=== PATIENT | female | born 1955 | race Caucasian/White ===

== ENCOUNTER 2018-02-16 14:37 | Inpatient (IN) ==
[2018-02-16] MEDS ORDERED: SODIUM CHLORIDE 0.9% 1,000 ML IV STA (15:16)
[2018-02-16] MEDS ORDERED: PIPERACILLIN/TAZOBACTAM 3,375 MG in SODIUM CHLORIDE 0.9% 100 ML IV STA (15:16)
[2018-02-16] MEDS ORDERED: ONDANSETRON 4 MG/2 ML VIAL IV STA (15:16)
[2018-02-16] MEDS ORDERED: ONDANSETRON 4 MG/2 ML VIAL ONE (15:40)
[2018-02-16] MEDS ORDERED: PIPERACILLIN/TAZOBACTAM 3,375 MG VIAL IV ONE (15:40)
[2018-02-16] MEDS ORDERED: HYDROmorphone 2 MG/1 ML VIAL ONE (16:01)
[2018-02-16] MEDS ORDERED: LACTATED RINGERS 1,000 ML IV ONE (16:50)
[2018-02-16] MEDS ORDERED: HYDROmorphone 2 MG/1 ML VIAL IV ONE (17:00)
[2018-02-16 17:08] LABS: Basophils % 0.2 % (0.0-0.8); Hematocrit 32.2 VOL% (35.7-47.0); Hemoglobin 10.2 GM/DL (12.0-16.0); Immature Granulocytes % 0.3 %; Immature Granulocytes Absolute 0.05 #; Lymphocytes # 0.5 10*3/uL (1.4-4.0); Lymphocytes % 3.1 % (21.3-54.2); Mean Corpuscular HGB Conc 31.7 GM/DL (32-36); Mean Corpuscular Hemoglobin 24 PG (27-34); Mean Corpuscular Volume 76.1 FL (87-102); Mean Platelet Volume 10.9 FL (9.6-12.0); Monocytes # 0.5 10*3/uL (0.11-0.8); Monocytes % 3.1 % (1.7-12.7); Neutrophils # 15.8 10*3/uL (1.4-7.4); Neutrophils % 93.3 % (38.7-73.9); Platelet Count 437 T/CUMM (130-400); Red Blood Count 4.23 MC/CUMM (3.8-5.5); Red Cell Distribution Width 15.8 % (9.3-17.3); White Blood Count 16.9 T/CUMM (4-12)
[2018-02-16 17:39] LABS: Albumin 2.6 G/DL (3.4-5.0); Bilirubin,Total 0.4 MG/DL (0.2-1.0); Calcium 8.4 MG/DL (8.5-10.1); Osmolality,Calculated 277.8 MOS/KG (273-304); Potassium 4.1 MMOL/L (3.5-5.1)
[2018-02-16] MEDS ORDERED: ACETAMINOPHEN 325 MG TABLET PO PRN (17:43)
[2018-02-16 18:04] LABS: Lactic Acid 1.5 MMOL/L (0.4-2.0)
[2018-02-16] MEDS: LACTATED RINGERS 1,000 ML IV SCH (18:37)
[2018-02-16] MEDS: metroNIDAZOLE INJ 500 MG in PREMIX 1 EACH IV SCH (18:37)
[2018-02-16 18:52] LABS: INR 1.1; Partial Thromboplastin Time 34.3 SECS (0-40)
[2018-02-16] MEDS: PIPERACILLIN/TAZOBACTAM 3,375 MG in SODIUM CHLORIDE 0.9% 100 ML IV SCH (19:52)
[2018-02-16 20:47] LABS: Band Neutrophils 23 % (0-10); Lymphocytes 7 % (20-55); Platelet Estimate Increased; Segmented Neutrophils 69 % (50-85); Total Cells Counted 100
[2018-02-17] MEDS: metroNIDAZOLE INJ 500 MG in PREMIX 1 EACH IV SCH ×3 (01:50→18:12)
[2018-02-17] MEDS: LACTATED RINGERS 1,000 ML IV SCH ×5 (03:15→23:55)
[2018-02-17] MEDS: PIPERACILLIN/TAZOBACTAM 3,375 MG in SODIUM CHLORIDE 0.9% 100 ML IV SCH ×3 (03:15→19:26)
[2018-02-17] MEDS: ONDANSETRON 4 MG/2 ML VIAL IV PRN (03:55)
[2018-02-17] MEDS: HYDROmorphone 2 MG/1 ML VIAL IV PRN (03:55)
[2018-02-17 05:55] LABS: Basophils # 0.1 10*3/uL (0.0-0.2); Basophils % 0.4 % (0.0-0.8); Eosinophils % 0.2 % (0.00-10.9); Hematocrit 28.8 VOL% (35.7-47.0); Hemoglobin 9.1 GM/DL (12.0-16.0); Immature Granulocytes % 0.2 %; Immature Granulocytes Absolute 0.02 #; Lymphocytes # 0.4 10*3/uL (1.4-4.0); Lymphocytes % 3.1 % (21.3-54.2); Mean Corpuscular HGB Conc 31.6 GM/DL (32-36); Mean Corpuscular Hemoglobin 24 PG (27-34); Mean Corpuscular Volume 76.2 FL (87-102); Mean Platelet Volume 11.4 FL (9.6-12.0); Monocytes # 0.4 10*3/uL (0.11-0.8); Monocytes % 3.4 % (1.7-12.7); Neutrophils # 11.3 10*3/uL (1.4-7.4); Neutrophils % 92.7 % (38.7-73.9); Platelet Count 364 T/CUMM (130-400); Red Blood Count 3.78 MC/CUMM (3.8-5.5); Red Cell Distribution Width 15.7 % (9.3-17.3); White Blood Count 12.2 T/CUMM (4-12)
[2018-02-17 06:16] LABS: Calcium 8.2 MG/DL (8.5-10.1); Osmolality,Calculated 277.7 MOS/KG (273-304); Potassium 4.1 MMOL/L (3.5-5.1)
[2018-02-17] MEDS ORDERED: LACTATED RINGERS 1,000 ML IV ONE (06:28)
[2018-02-17 06:44] LABS: Band Neutrophils 16 % (0-10); Lymphocytes 8 % (20-55); Segmented Neutrophils 69 % (50-85); Total Cells Counted 100
[2018-02-17 06:45] LABS: Microcytosis 2+; Platelet Estimate Normal
[2018-02-17] MEDS ORDERED: PANTOPRAZOLE 40 MG TABLET PO SCH (09:00)
[2018-02-17] MEDS: MULTIVITAMIN (CENTRUM) TABLET PO SCH (09:03)
[2018-02-17] MEDS: ENOXAPARIN 40 MG/0.4 ML SYRINGE SUBCUT SCH (09:15)
[2018-02-17] MEDS: PANTOPRAZOLE 40 MG VIAL IV SCH (09:15)
[2018-02-18] MEDS: metroNIDAZOLE INJ 500 MG in PREMIX 1 EACH IV SCH ×3 (02:12→17:30)
[2018-02-18] MEDS: PIPERACILLIN/TAZOBACTAM 3,375 MG in SODIUM CHLORIDE 0.9% 100 ML IV SCH ×3 (04:06→21:00)
[2018-02-18] MEDS: LACTATED RINGERS 1,000 ML IV SCH ×2 (04:06→08:45)
[2018-02-18 05:43] LABS: Basophils % 0.2 % (0.0-0.8); Eosinophils # 0.1 10*3/uL (0.0-0.87); Eosinophils % 0.5 % (0.00-10.9); Hematocrit 27.1 VOL% (35.7-47.0); Hemoglobin 8.3 GM/DL (12.0-16.0); Immature Granulocytes % 0.3 %; Immature Granulocytes Absolute 0.03 #; Lymphocytes # 0.6 10*3/uL (1.4-4.0); Lymphocytes % 4.8 % (21.3-54.2); Mean Corpuscular HGB Conc 30.6 GM/DL (32-36); Mean Corpuscular Hemoglobin 23 PG (27-34); Mean Corpuscular Volume 76.6 FL (87-102); Mean Platelet Volume 10.6 FL (9.6-12.0); Monocytes # 0.5 10*3/uL (0.11-0.8); Neutrophils # 10.2 10*3/uL (1.4-7.4); Neutrophils % 90.2 % (38.7-73.9); Platelet Count 328 T/CUMM (130-400); Red Blood Count 3.54 MC/CUMM (3.8-5.5); Red Cell Distribution Width 15.9 % (9.3-17.3); White Blood Count 11.4 T/CUMM (4-12)
[2018-02-18 06:03] LABS: Osmolality,Calculated 274.7 MOS/KG (273-304); Potassium 3.8 MMOL/L (3.5-5.1)
[2018-02-18 06:07] LABS: Band Neutrophils 3 % (0-10); Lymphocytes 5 % (20-55); Segmented Neutrophils 89 % (50-85); Total Cells Counted 100
[2018-02-18 06:08] LABS: Acanthocytes Few; Hypochromasia 1+; Microcytosis 1+; Ovalocytes Slight
[2018-02-18 06:09] LABS: Platelet Estimate Normal; Target Cells Slight
[2018-02-18] MEDS: MULTIVITAMIN (CENTRUM) TABLET PO SCH (08:33)
[2018-02-18] MEDS: PANTOPRAZOLE 40 MG VIAL IV SCH (08:38)
[2018-02-18] MEDS: ENOXAPARIN 40 MG/0.4 ML SYRINGE SUBCUT SCH (08:39)
[2018-02-18] MEDS: ONDANSETRON 4 MG/2 ML VIAL IV PRN ×2 (10:08→21:01)
[2018-02-18] MEDS: DEXT 5% NACL 0.45% KCL 20 MEQ 20 MEQ/1,000 ML BAG IV SCH (12:42)
[2018-02-18] MEDS: HYDROmorphone 2 MG/1 ML VIAL IV PRN (20:56)
[2018-02-19] MEDS: metroNIDAZOLE INJ 500 MG in PREMIX 1 EACH IV SCH ×3 (01:43→18:00)
[2018-02-19] MEDS: DEXT 5% NACL 0.45% KCL 20 MEQ 20 MEQ/1,000 ML BAG IV SCH (04:42)
[2018-02-19] MEDS: PIPERACILLIN/TAZOBACTAM 3,375 MG in SODIUM CHLORIDE 0.9% 100 ML IV SCH ×3 (04:46→21:02)
[2018-02-19 04:55] LABS: Basophils % 0.1 % (0.0-0.8); Eosinophils # 0.1 10*3/uL (0.0-0.87); Eosinophils % 0.5 % (0.00-10.9); Hematocrit 23.9 VOL% (35.7-47.0); Hemoglobin 7.9 GM/DL (12.0-16.0); Immature Granulocytes % 0.5 %; Immature Granulocytes Absolute 0.07 #; Lymphocytes # 0.6 10*3/uL (1.4-4.0); Lymphocytes % 4.2 % (21.3-54.2); Mean Corpuscular HGB Conc 33.1 GM/DL (32-36); Mean Corpuscular Hemoglobin 24 PG (27-34); Mean Corpuscular Volume 72.9 FL (87-102); Mean Platelet Volume 10.8 FL (9.6-12.0); Monocytes # 0.8 10*3/uL (0.11-0.8); Neutrophils # 11.7 10*3/uL (1.4-7.4); Neutrophils % 88.7 % (38.7-73.9); Platelet Count 343 T/CUMM (130-400); Red Blood Count 3.28 MC/CUMM (3.8-5.5); Red Cell Distribution Width 15.9 % (9.3-17.3); White Blood Count 13.2 T/CUMM (4-12)
[2018-02-19 05:12] LABS: Partial Thromboplastin Time 36.4 SECS (0-40)
[2018-02-19 05:17] LABS: Band Neutrophils 1 % (0-10); Giant Platelets Few; Hypochromasia 1+; Lymphocytes 4 % (20-55); Microcytosis 1+; Platelet Estimate Adequate; Segmented Neutrophils 89 % (50-85); Total Cells Counted 100
[2018-02-19 05:27] LABS: Alanine Aminotransferase < 9 U/L (13-56); Albumin 1.6 G/DL (3.4-5.0); Alkaline Phosphatase 55 U/L (45-117); Aspartate Amino Transferase 9 U/L (0-37); Bilirubin,Total < 0.39 MG/DL (0.2-1.0); Blood Urea Nitrogen 12 MG/DL (7-18); Calcium 7.6 MG/DL (8.5-10.1); Glucose 126 MG/DL (74-106); Osmolality,Calculated 276.7 MOS/KG (273-304); Potassium 3.1 MMOL/L (3.5-5.1); Sodium 138 MMOL/L (136-145); Total Protein 4.1 G/DL (6.4-8.3)
[2018-02-19] MEDS: MULTIVITAMIN (CENTRUM) TABLET PO SCH (10:13)
[2018-02-19] MEDS: PANTOPRAZOLE 40 MG VIAL IV SCH (10:13)
[2018-02-19] MEDS: ENOXAPARIN 40 MG/0.4 ML SYRINGE SUBCUT SCH (10:13)
[2018-02-19] MEDS: POTASSIUM CHLORIDE RIDER 10 MEQ in PREMIX 1 EACH IV PRN ×3 (13:30→22:18)
[2018-02-19] MEDS: ONDANSETRON 4 MG/2 ML VIAL IV PRN (16:20)
[2018-02-20] MEDS: metroNIDAZOLE INJ 500 MG in PREMIX 1 EACH IV SCH ×3 (01:21→18:34)
[2018-02-20] MEDS: POTASSIUM CHLORIDE RIDER 10 MEQ in PREMIX 1 EACH IV PRN (01:22)
[2018-02-20] MEDS: PIPERACILLIN/TAZOBACTAM 3,375 MG in SODIUM CHLORIDE 0.9% 100 ML IV SCH ×3 (05:00→21:39)
[2018-02-20 06:09] LABS: Basophils % 0.2 % (0.0-0.8); Eosinophils # 0.1 10*3/uL (0.0-0.87); Eosinophils % 1.1 % (0.00-10.9); Hematocrit 24.5 VOL% (35.7-47.0); Hemoglobin 8.1 GM/DL (12.0-16.0); Immature Granulocytes % 0.6 %; Immature Granulocytes Absolute 0.06 #; Lymphocytes % 9.2 % (21.3-54.2); Mean Corpuscular HGB Conc 33.1 GM/DL (32-36); Mean Corpuscular Hemoglobin 24 PG (27-34); Mean Corpuscular Volume 73.1 FL (87-102); Monocytes # 1.2 10*3/uL (0.11-0.8); Monocytes % 10.8 % (1.7-12.7); Neutrophils # 8.5 10*3/uL (1.4-7.4); Neutrophils % 78.1 % (38.7-73.9); Platelet Count 341 T/CUMM (130-400); Red Blood Count 3.35 MC/CUMM (3.8-5.5); Red Cell Distribution Width 16.2 % (9.3-17.3); White Blood Count 10.9 T/CUMM (4-12)
[2018-02-20 06:25] LABS: Calcium 7.7 MG/DL (8.5-10.1); Osmolality,Calculated 274.5 MOS/KG (273-304); Potassium 3.5 MMOL/L (3.5-5.1)
[2018-02-20 06:33] LABS: Band Neutrophils 3 % (0-10); Eosinophils 2 % (0-10); Giant Platelets Few; Hypochromasia 1+; Lymphocytes 7 % (20-55); Ovalocytes Slight; Platelet Estimate Adequate; Segmented Neutrophils 82 % (50-85); Total Cells Counted 100
[2018-02-20] MEDS: ONDANSETRON 4 MG/2 ML VIAL IV PRN (06:33)
[2018-02-20 06:34] LABS: Microcytosis 1+
[2018-02-20] MEDS: PROMETHAZINE 25 MG/1 ML VIAL IM PRN (09:26)
[2018-02-20] MEDS: PANTOPRAZOLE 40 MG VIAL IV SCH (09:30)
[2018-02-20] MEDS: MULTIVITAMIN (CENTRUM) TABLET PO SCH (09:31)
[2018-02-20] MEDS: POLYETHYLENE GLYCOL POWDER 17 GM PACK PO SCH (09:31)
[2018-02-20] MEDS: ENOXAPARIN 40 MG/0.4 ML SYRINGE SUBCUT SCH (09:31)
[2018-02-20] MEDS: HYDROmorphone 2 MG/1 ML VIAL IV PRN ×4 (09:37→20:05)
[2018-02-20] MEDS ORDERED: SODIUM CHLORIDE 0.9% 1,000 ML IV PRN (20:26)
[2018-02-20] MEDS ORDERED: LACTATED RINGERS 1,000 ML IV ONE (20:29)
[2018-02-20] MEDS ORDERED: cefOXitin 2,000 MG in SYRINGE 1 EACH IV ONE (21:00)
[2018-02-20 21:57] LABS: Apearance,Urine CLEAR (Clear); Blood, Urine Negative (Negative); Glucose,Urine (UA) Negative (Negative); Ketones,Urine 80 mg/dL (Negative); Mucus,Urine Many /LPF (Occasional); Nitrite,Urine Negative (Negative); Protein,Urine 30 MG/DL; RBC,Urine 3 /HPF (0-4); Urine Color Amber (Yellow); Urine Specific Gravity > 1.060 (1.001-1.035); WBC,Urine 1 /HPF (0-6)
[2018-02-20 21:59] LABS: Bilirubin,Urine Small mg/dL (Negative)
[2018-02-20 22:34] LABS: Hematocrit 36.5 VOL% (35.7-47.0)
[2018-02-20 22:36] LABS: Hemoglobin 11.3 GM/DL (12.0-16.0)
[2018-02-20] MEDS ORDERED: PHENYLEPHRINE DRIP 40 MG/250 ML PREMIX IV ONE (22:46)
[2018-02-20] MEDS ORDERED: PROPOFOL 1,000 MG/100 ML BOTTLE IV SCH (23:00)
[2018-02-20] MEDS: PHENYLEPHRINE DRIP 40 MG/250 ML PREMIX IV PRN (23:50)
[2018-02-20] MEDS ORDERED: MIDAZOLAM 2 MG/2 ML VIAL ONE (23:54)
[2018-02-20] MEDS ORDERED: SEVOFLURANE 1 UNIT/15 MINUTE INH ONE (23:54)
[2018-02-20] MEDS ORDERED: fentaNYL 100 MCG/2 ML VIAL ONE (23:54)
[2018-02-20] MEDS ORDERED: MIDAZOLAM 10 MG/2 ML VIAL ONE (23:54)
[2018-02-20] MEDS ORDERED: PHENYLEPHRINE 10 MG/1 ML VIAL IV ONE (23:55)
[2018-02-20] MEDS ORDERED: DEXAMETHASONE 10 MG/1 ML VIAL ONE (23:55)
[2018-02-20] MEDS ORDERED: VECURONIUM 10 MG VIAL IV ONE (23:55)
[2018-02-20] MEDS ORDERED: LACTATED RINGERS 2,000 ML IV ONE (23:55)
[2018-02-20] MEDS ORDERED: ONDANSETRON 4 MG/2 ML VIAL ONE (23:55)
[2018-02-20] MEDS ORDERED: SUCCINYLCHOLINE 200 MG/10 ML VIAL ONE (23:55)
[2018-02-20] MEDS ORDERED: ETOMIDATE 40 MG/20 ML VIAL IV ONE (23:55)
[2018-02-20] MEDS ORDERED: SODIUM CHLORIDE 0.9% 1,000 ML IV ONE (23:55)
[2018-02-20] MEDS ORDERED: SODIUM CHLORIDE 0.9% 100 ML IV ONE (23:55)
[2018-02-21 00:20] LABS: ABG HCO3 20.6 MMOL/L (20-26); ABG PCO2 36.2 MM HG (35-48); ABG PH 7.374 (7.35-7.45); ABG PO2 237.1 MM HG (80-95); ABG TCO2 21.8 MMOL/L (23-27)
[2018-02-21 00:39] LABS: Alanine Aminotransferase < 6 U/L (13-56); Albumin 1.1 G/DL (3.4-5.0); Alkaline Phosphatase 36 U/L (45-117); Aspartate Amino Transferase 15 U/L (0-37); Blood Urea Nitrogen 12 MG/DL (7-18); Calcium 6.7 MG/DL (8.5-10.1); Glucose 132 MG/DL (74-106); Lactic Acid 2.6 MMOL/L (0.4-2.0); Osmolality,Calculated 278.5 MOS/KG (273-304); Sodium 139 MMOL/L (136-145); Total Protein 2.9 G/DL (6.4-8.3)
[2018-02-21 00:40] LABS: Basophils # 0.1 10*3/uL (0.0-0.2); Basophils % 0.6 % (0.0-0.8); Eosinophils % 0.1 % (0.00-10.9); Hematocrit 37.2 VOL% (35.7-47.0); Hemoglobin 12.4 GM/DL (12.0-16.0); Immature Granulocytes % 0.9 %; Immature Granulocytes Absolute 0.15 #; Lymphocytes # 1.2 10*3/uL (1.4-4.0); Lymphocytes % 6.9 % (21.3-54.2); Mean Corpuscular HGB Conc 33.3 GM/DL (32-36); Mean Corpuscular Hemoglobin 25 PG (27-34); Mean Corpuscular Volume 76.1 FL (87-102); Mean Platelet Volume 11.2 FL (9.6-12.0); Monocytes # 0.7 10*3/uL (0.11-0.8); Monocytes % 4.4 % (1.7-12.7); Neutrophils # 14.5 10*3/uL (1.4-7.4); Neutrophils % 87.1 % (38.7-73.9); Platelet Count 492 T/CUMM (130-400); Red Blood Count 4.89 MC/CUMM (3.8-5.5); White Blood Count 16.7 T/CUMM (4-12)
[2018-02-21] MEDS: PROPOFOL 1,000 MG/100 ML BOTTLE IV SCH ×3 (00:43→20:08)
[2018-02-21] MEDS ORDERED: LACTATED RINGERS 2,000 ML IV ONE (00:49)
[2018-02-21] MEDS ORDERED: MAGNESIUM SULF RIDER 2 GM in PREMIX 1 EACH IV PRN (00:50)
[2018-02-21] MEDS ORDERED: MAGNESIUM SULF RIDER 4 GM in PREMIX 1 EACH IV PRN (00:50)
[2018-02-21 01:23] LABS: Band Neutrophils 65 % (0-10); Lymphocytes 7 % (20-55); Segmented Neutrophils 25 % (50-85); Total Cells Counted 100
[2018-02-21 01:24] LABS: Anisocytosis 1+; Poikilocytosis 1+
[2018-02-21 01:25] LABS: Acanthocytes 2+
[2018-02-21] MEDS: metroNIDAZOLE INJ 500 MG in PREMIX 1 EACH IV SCH ×3 (02:53→17:29)
[2018-02-21] MEDS: PHENYLEPHRINE DRIP 40 MG/250 ML PREMIX IV PRN ×3 (03:14→17:44)
[2018-02-21] MEDS: LACTATED RINGERS 1,000 ML IV SCH ×6 (03:19→23:02)
[2018-02-21 03:55] LABS: ABG Base Excess -2.2 MMOL/L (-2.5-2.5); ABG HCO3 21.2 MMOL/L (20-26); ABG Oxygen Saturation 99.1 % (95-100); ABG PCO2 31.7 MM HG (35-48); ABG PH 7.443 (7.35-7.45); ABG PO2 286.8 MM HG (80-95); ABG TCO2 22.2 MMOL/L (23-27); Basophils # 0.1 10*3/uL (0.0-0.2); Basophils % 0.4 % (0.0-0.8); Immature Granulocytes % 0.9 %; Lymphocytes % 4.1 % (21.3-54.2); Mean Corpuscular HGB Conc 33.3 GM/DL (32-36); Mean Corpuscular Hemoglobin 26 PG (27-34); Mean Corpuscular Volume 76.9 FL (87-102); Mean Platelet Volume 10.9 FL (9.6-12.0); Monocytes # 0.9 10*3/uL (0.11-0.8); Monocytes % 3.7 % (1.7-12.7); Neutrophils # 21.2 10*3/uL (1.4-7.4); Neutrophils % 90.9 % (38.7-73.9); Platelet Count 438 T/CUMM (130-400); Red Blood Count 4.29 MC/CUMM (3.8-5.5); Red Cell Distribution Width 17.4 % (9.3-17.3); White Blood Count 23.3 T/CUMM (4-12)
[2018-02-21] MEDS: PIPERACILLIN/TAZOBACTAM 3,375 MG in SODIUM CHLORIDE 0.9% 100 ML IV SCH ×3 (04:05→20:08)
[2018-02-21 04:16] LABS: Band Neutrophils 56 % (0-10); Lymphocytes 3 % (20-55); Segmented Neutrophils 38 % (50-85); Total Cells Counted 100
[2018-02-21 04:17] LABS: Acanthocytes 1+; Anisocytosis 1+; Hypochromasia 1+; Poikilocytosis 1+
[2018-02-21 04:20] LABS: Calcium 6.8 MG/DL (8.5-10.1); Osmolality,Calculated 279.5 MOS/KG (273-304); Potassium 4.1 MMOL/L (3.5-5.1)
[2018-02-21] MEDS: HYDROmorphone 2 MG/1 ML VIAL IV PRN ×3 (05:28→23:01)
[2018-02-21 07:49] LABS: ABG Base Excess -4.1 MMOL/L (-2.5-2.5); ABG Oxygen Saturation 98.7 % (95-100); ABG PCO2 40.9 MM HG (35-48); ABG TCO2 19.5 MMOL/L (23-27)
[2018-02-21] MEDS: MULTIVITAMIN (CENTRUM) TABLET PO SCH (09:10)
[2018-02-21] MEDS: POLYETHYLENE GLYCOL POWDER 17 GM PACK PO SCH (09:10)
[2018-02-21] MEDS: PANTOPRAZOLE 40 MG VIAL IV SCH (10:20)
[2018-02-21] MEDS ORDERED: SEVOFLURANE 1 UNIT/15 MINUTE INH ONE (14:03)
[2018-02-21] MEDS ORDERED: MIDAZOLAM 10 MG/2 ML VIAL ONE (14:04)
[2018-02-21] MEDS ORDERED: SODIUM CHLORIDE 0.9% 1,000 ML IV ONE ×3 (14:04→19:32)
[2018-02-21] MEDS ORDERED: ROCURONIUM 100 MG/10 ML VIAL IV ONE (14:04)
[2018-02-21] MEDS ORDERED: LACTATED RINGERS 1,000 ML IV ONE (14:06)
[2018-02-21 14:18] LABS: ABG Base Excess -3.8 MMOL/L (-2.5-2.5); ABG HCO3 21.3 MMOL/L (20-26); ABG Oxygen Saturation 99.3 % (95-100); ABG PCO2 41.7 MM HG (35-48); ABG TCO2 19.9 MMOL/L (23-27)
[2018-02-21 14:20] LABS: Basophils # 0.1 10*3/uL (0.0-0.2); Basophils % 0.3 % (0.0-0.8); Hematocrit 33.3 VOL% (35.7-47.0); Hemoglobin 10.9 GM/DL (12.0-16.0); Immature Granulocytes % 1.1 %; Immature Granulocytes Absolute 0.26 #; Lymphocytes # 1.4 10*3/uL (1.4-4.0); Lymphocytes % 5.9 % (21.3-54.2); Mean Corpuscular HGB Conc 32.7 GM/DL (32-36); Mean Corpuscular Hemoglobin 25 PG (27-34); Mean Corpuscular Volume 77.6 FL (87-102); Mean Platelet Volume 10.5 FL (9.6-12.0); Monocytes # 1.7 10*3/uL (0.11-0.8); Monocytes % 7.1 % (1.7-12.7); Neutrophils % 85.6 % (38.7-73.9); Platelet Count 457 T/CUMM (130-400); Red Blood Count 4.29 MC/CUMM (3.8-5.5); Red Cell Distribution Width 17.4 % (9.3-17.3); White Blood Count 23.3 T/CUMM (4-12)
[2018-02-21 14:41] LABS: Lactic Acid 1.9 MMOL/L (0.4-2.0)
[2018-02-21 14:43] LABS: Calcium 6.9 MG/DL (8.5-10.1); Osmolality,Calculated 283.4 MOS/KG (273-304); Potassium 4.4 MMOL/L (3.5-5.1)
[2018-02-21 15:01] LABS: Band Neutrophils 9 % (0-10); Lymphocytes 7 % (20-55); Platelet Estimate Increased
[2018-02-21 15:02] LABS: Total Cells Counted 100
[2018-02-21 15:03] LABS: Hypochromasia Slight; Segmented Neutrophils 3 % (50-85)
[2018-02-21] MEDS ORDERED: GLUCAGON 1 MG VIAL IM PRN (15:03)
[2018-02-21] MEDS ORDERED: DEXTROSE 50% 25 GM/50 ML VIAL IV PRN (15:03)
[2018-02-21] MEDS ORDERED: ALBUMIN 5% 25 GM in PREMIX 1 EACH IV ONE (15:19)
[2018-02-21] MEDS ORDERED: ALBUMIN 25% 25 GM in PREMIX 1 EACH IV ONE (17:17)
[2018-02-21] MEDS: INSULIN REGULAR 100 UNIT/ML SUBCUT SCH (18:33)
[2018-02-21] MEDS: ONDANSETRON 4 MG/2 ML VIAL IV PRN (21:21)
[2018-02-21] MEDS ORDERED: PHENYLEPHRINE DRIP 40 MG/250 ML PREMIX IV PRN (22:45)
[2018-02-22] MEDS: INSULIN REGULAR 100 UNIT/ML SUBCUT SCH ×5 (00:12→23:59)
[2018-02-22] MEDS: PROPOFOL 1,000 MG/100 ML BOTTLE IV SCH ×3 (00:28→16:47)
[2018-02-22] MEDS: metroNIDAZOLE INJ 500 MG in PREMIX 1 EACH IV SCH ×3 (02:55→18:35)
[2018-02-22 03:11] LABS: ABG Base Excess 0.2 MMOL/L (-2.5-2.5); ABG HCO3 24.7 MMOL/L (20-26); ABG Oxygen Saturation 99.4 % (95-100); ABG PCO2 36.9 MM HG (35-48); ABG PH 7.429 (7.35-7.45); ABG TCO2 22.9 MMOL/L (23-27)
[2018-02-22 03:19] LABS: Basophils % 0.1 % (0.0-0.8); Hematocrit 22.6 VOL% (35.7-47.0); Hemoglobin 7.4 GM/DL (12.0-16.0); Immature Granulocytes Absolute 0.17 #; Lymphocytes # 1.5 10*3/uL (1.4-4.0); Mean Corpuscular HGB Conc 32.7 GM/DL (32-36); Mean Corpuscular Hemoglobin 25 PG (27-34); Mean Corpuscular Volume 77.4 FL (87-102); Mean Platelet Volume 10.3 FL (9.6-12.0); Monocytes # 1.4 10*3/uL (0.11-0.8); Neutrophils # 13.8 10*3/uL (1.4-7.4); Neutrophils % 81.9 % (38.7-73.9); Platelet Count 281 T/CUMM (130-400); Red Blood Count 2.92 MC/CUMM (3.8-5.5); Red Cell Distribution Width 17.3 % (9.3-17.3); White Blood Count 16.9 T/CUMM (4-12)
[2018-02-22] MEDS: HYDROmorphone 2 MG/1 ML VIAL IV PRN ×5 (03:33→23:59)
[2018-02-22] MEDS: LACTATED RINGERS 1,000 ML IV SCH ×4 (03:34→22:29)
[2018-02-22] MEDS: PIPERACILLIN/TAZOBACTAM 3,375 MG in SODIUM CHLORIDE 0.9% 100 ML IV SCH (03:34)
[2018-02-22] MEDS ORDERED: SODIUM CHLORIDE 0.9% 1,000 ML IV PRN (03:43)
[2018-02-22 03:47] LABS: Calcium 6.5 MG/DL (8.5-10.1); Osmolality,Calculated 282.1 MOS/KG (273-304); Potassium 3.7 MMOL/L (3.5-5.1)
[2018-02-22 03:50] LABS: Prealbumin 3.8 MG/DL (20-40)
[2018-02-22 04:34] LABS: Band Neutrophils 5 % (0-10); Lymphocytes 9 % (20-55); Segmented Neutrophils 76 % (50-85); Total Cells Counted 100
[2018-02-22 04:35] LABS: Hypochromasia 1+; Platelet Estimate Normal
[2018-02-22 04:38] LABS: Giant Platelets Few; Microcytosis 1+
[2018-02-22] MEDS: PHENYLEPHRINE DRIP 40 MG/250 ML PREMIX IV PRN ×2 (07:50→13:18)
[2018-02-22] MEDS: PANTOPRAZOLE 40 MG VIAL IV SCH (08:34)
[2018-02-22] MEDS: MULTIVITAMIN (CENTRUM) TABLET PO SCH (08:51)
[2018-02-22 08:52] LABS: ABG Base Excess -0.2 MMOL/L (-2.5-2.5); ABG HCO3 24.3 MMOL/L (20-26); ABG Oxygen Saturation 99.3 % (95-100); ABG PCO2 39.8 MM HG (35-48); ABG PH 7.398 (7.35-7.45); ABG TCO2 22.2 MMOL/L (23-27)
[2018-02-22] MEDS ORDERED: POTASSIUM PHOSPHATE 15 MMOL in SODIUM CHLORIDE 0.9% 250 ML IV ONE (11:50)
[2018-02-22] MEDS: ERTAPENEM 1,000 MG in SODIUM CHLORIDE 0.9% 100 ML IV SCH (11:58)
[2018-02-22 13:15] LABS: Hemoglobin 10.2 GM/DL (12.0-16.0)
[2018-02-22] MEDS ORDERED: DEXTROSE 10% 1,000 ML IV PRN (17:00)
[2018-02-22] MEDS ORDERED: TRACE ELEMENTS (5) 1 ML, MULTIVITAMIN INJ 10 ML in AMINO ACIDS/DEXT/LYTE 4.25-15% 2,000 ML IV SCH (17:00)
[2018-02-23] MEDS: PROPOFOL 1,000 MG/100 ML BOTTLE IV SCH ×3 (01:59→22:25)
[2018-02-23] MEDS: metroNIDAZOLE INJ 500 MG in PREMIX 1 EACH IV SCH ×3 (02:07→18:54)
[2018-02-23] MEDS: LACTATED RINGERS 1,000 ML IV SCH ×4 (04:22→18:44)
[2018-02-23 04:28] LABS: ABG Base Excess 3.5 MMOL/L (-2.5-2.5); ABG HCO3 27.6 MMOL/L (20-26); ABG Oxygen Saturation 99.3 % (95-100); ABG PCO2 38.1 MM HG (35-48); ABG PH 7.465 (7.35-7.45); ABG TCO2 24.9 MMOL/L (23-27)
[2018-02-23 04:40] LABS: Basophils % 0.2 % (0.0-0.8); Eosinophils % 0.2 % (0.00-10.9); Hematocrit 28.5 VOL% (35.7-47.0); Hemoglobin 9.9 GM/DL (12.0-16.0); Immature Granulocytes % 1.5 %; Immature Granulocytes Absolute 0.27 #; Lymphocytes # 1.7 10*3/uL (1.4-4.0); Lymphocytes % 9.7 % (21.3-54.2); Mean Corpuscular HGB Conc 34.7 GM/DL (32-36); Mean Corpuscular Hemoglobin 27 PG (27-34); Mean Corpuscular Volume 78.1 FL (87-102); Mean Platelet Volume 10.1 FL (9.6-12.0); Monocytes % 5.5 % (1.7-12.7); Neutrophils # 14.6 10*3/uL (1.4-7.4); Neutrophils % 82.9 % (38.7-73.9); Platelet Count 268 T/CUMM (130-400); Red Blood Count 3.65 MC/CUMM (3.8-5.5); Red Cell Distribution Width 18.1 % (9.3-17.3); White Blood Count 17.6 T/CUMM (4-12)
[2018-02-23 04:55] LABS: Lactic Acid 0.9 MMOL/L (0.4-2.0)
[2018-02-23 04:58] LABS: Calcium 6.9 MG/DL (8.5-10.1); Osmolality,Calculated 283.1 MOS/KG (273-304); Potassium 3.3 MMOL/L (3.5-5.1)
[2018-02-23 05:10] LABS: Band Neutrophils 3 % (0-10); Hypochromasia 1+; Lymphocytes 10 % (20-55); Segmented Neutrophils 85 % (50-85); Total Cells Counted 100
[2018-02-23 05:11] LABS: Microcytosis 1+; Target Cells Slight
[2018-02-23] MEDS: INSULIN REGULAR 100 UNIT/ML SUBCUT SCH ×3 (05:58→18:53)
[2018-02-23] MEDS: HYDROmorphone 2 MG/1 ML VIAL IV PRN ×3 (08:08→23:01)
[2018-02-23] MEDS: MULTIVITAMIN (CENTRUM) TABLET PO SCH (09:50)
[2018-02-23] MEDS: PANTOPRAZOLE 40 MG VIAL IV SCH (09:51)
[2018-02-23] MEDS: POTASSIUM CHLORIDE RIDER 20 MEQ in PREMIX 1 EACH IV PRN ×2 (09:51→15:11)
[2018-02-23] MEDS: ERTAPENEM 1,000 MG in SODIUM CHLORIDE 0.9% 100 ML IV SCH (10:00)
[2018-02-23] MEDS: PHENYLEPHRINE DRIP 40 MG/250 ML PREMIX IV PRN (11:31)
[2018-02-23] MEDS: fentaNYL 100 MCG/2 ML VIAL IV PRN ×4 (14:55→21:07)
[2018-02-23] MEDS ORDERED: TRACE ELEMENTS (5) 1 ML, MULTIVITAMIN INJ 10 ML in AMINO ACIDS/DEXT/LYTE 4.25-15% 2,000 ML IV SCH (17:00)
[2018-02-23] MEDS: ONDANSETRON 4 MG/2 ML VIAL IV PRN (22:23)
[2018-02-23] MEDS: PROMETHAZINE 25 MG/1 ML VIAL IM PRN (23:05)
[2018-02-24] MEDS: LACTATED RINGERS 1,000 ML IV SCH ×3 (01:37→08:01)
[2018-02-24] MEDS: PROPOFOL 1,000 MG/100 ML BOTTLE IV SCH ×3 (03:01→17:47)
[2018-02-24] MEDS: metroNIDAZOLE INJ 500 MG in PREMIX 1 EACH IV SCH ×3 (03:22→18:46)
[2018-02-24] MEDS: HYDROmorphone 2 MG/1 ML VIAL IV PRN ×4 (03:23→23:00)
[2018-02-24] MEDS: ONDANSETRON 4 MG/2 ML VIAL IV PRN ×3 (03:23→19:07)
[2018-02-24 03:27] LABS: Allen Test Positive; Pt O2 Delivery Device Ventilator
[2018-02-24 03:31] LABS: ABG Base Excess 5.7 MMOL/L (-2.5-2.5); ABG HCO3 29.3 MMOL/L (20-26); ABG Oxygen Saturation 98.5 % (95-100); ABG PCO2 38.6 MM HG (35-48); ABG PH 7.498 (7.35-7.45); ABG PO2 144.9 MM HG (80-95); ABG TCO2 30.5 MMOL/L (23-27)
[2018-02-24 04:09] LABS: Basophils % 0.1 % (0.0-0.8); Eosinophils % 0.1 % (0.00-10.9); Hematocrit 29.5 VOL% (35.7-47.0); Hemoglobin 10.1 GM/DL (12.0-16.0); Immature Granulocytes % 1.1 %; Immature Granulocytes Absolute 0.17 #; Lymphocytes # 1.1 10*3/uL (1.4-4.0); Lymphocytes % 6.7 % (21.3-54.2); Mean Corpuscular HGB Conc 34.2 GM/DL (32-36); Mean Corpuscular Hemoglobin 27 PG (27-34); Mean Corpuscular Volume 80.2 FL (87-102); Mean Platelet Volume 10.2 FL (9.6-12.0); Monocytes # 0.8 10*3/uL (0.11-0.8); Monocytes % 4.8 % (1.7-12.7); Neutrophils # 13.7 10*3/uL (1.4-7.4); Neutrophils % 87.2 % (38.7-73.9); Platelet Count 297 T/CUMM (130-400); Red Blood Count 3.68 MC/CUMM (3.8-5.5); Red Cell Distribution Width 18.6 % (9.3-17.3); White Blood Count 15.7 T/CUMM (4-12)
[2018-02-24 04:49] LABS: Prealbumin 4.6 MG/DL (20-40)
[2018-02-24 05:04] LABS: Band Neutrophils 1 % (0-10); Lymphocytes 9 % (20-55); Segmented Neutrophils 88 % (50-85); Total Cells Counted 100
[2018-02-24 05:05] LABS: Hypochromasia 1+; Microcytosis 1+; Platelet Estimate Normal
[2018-02-24 05:06] LABS: Target Cells 1+
[2018-02-24 05:45] LABS: Osmolality,Calculated 286.8 MOS/KG (273-304); Potassium 3.3 MMOL/L (3.5-5.1)
[2018-02-24] MEDS: INSULIN REGULAR 100 UNIT/ML SUBCUT SCH ×5 (06:32→23:41)
[2018-02-24] MEDS: METOCLOPRAMIDE 10 MG/2 ML VIAL IV SCH ×3 (07:55→20:31)
[2018-02-24] MEDS: fentaNYL 100 MCG/2 ML VIAL IV PRN (08:40)
[2018-02-24] MEDS: PANTOPRAZOLE 40 MG VIAL IV SCH (09:43)
[2018-02-24] MEDS: ERTAPENEM 1,000 MG in SODIUM CHLORIDE 0.9% 100 ML IV SCH (11:56)
[2018-02-24] MEDS: TRACE ELEMENTS (5) 1 ML, MULTIVITAMIN INJ 10 ML, POTASSIUM CHLORIDE INJ 40 MEQ in AMINO... IV SCH (17:20)
[2018-02-25] MEDS: fentaNYL 100 MCG/2 ML VIAL IV PRN (00:30)
[2018-02-25] MEDS: PROPOFOL 1,000 MG/100 ML BOTTLE IV SCH ×2 (00:35→06:16)
[2018-02-25] MEDS: HYDROmorphone 2 MG/1 ML VIAL IV PRN ×8 (01:57→23:31)
[2018-02-25] MEDS: METOCLOPRAMIDE 10 MG/2 ML VIAL IV SCH ×4 (01:58→20:25)
[2018-02-25] MEDS: metroNIDAZOLE INJ 500 MG in PREMIX 1 EACH IV SCH ×3 (01:58→18:32)
[2018-02-25 04:40] LABS: Basophils % 0.1 % (0.0-0.8); Eosinophils # 0.1 10*3/uL (0.0-0.87); Eosinophils % 0.5 % (0.00-10.9); Hematocrit 27.4 VOL% (35.7-47.0); Hemoglobin 9.1 GM/DL (12.0-16.0); Immature Granulocytes % 1.3 %; Immature Granulocytes Absolute 0.18 #; Lymphocytes # 1.3 10*3/uL (1.4-4.0); Lymphocytes % 9.4 % (21.3-54.2); Mean Corpuscular HGB Conc 33.2 GM/DL (32-36); Mean Corpuscular Hemoglobin 27 PG (27-34); Mean Corpuscular Volume 81.5 FL (87-102); Mean Platelet Volume 9.8 FL (9.6-12.0); Monocytes % 6.9 % (1.7-12.7); Neutrophils # 11.5 10*3/uL (1.4-7.4); Neutrophils % 81.8 % (38.7-73.9); Platelet Count 291 T/CUMM (130-400); Red Blood Count 3.36 MC/CUMM (3.8-5.5); Red Cell Distribution Width 19.1 % (9.3-17.3); White Blood Count 14.1 T/CUMM (4-12)
[2018-02-25 04:47] LABS: ABG HCO3 32.3 MMOL/L (20-26); ABG Oxygen Saturation 97.4 % (95-100); ABG PCO2 38.8 MM HG (35-48); ABG PH 7.538 (7.35-7.45); ABG PO2 97.2 MM HG (80-95); ABG TCO2 33.5 MMOL/L (23-27); Allen Test Positive; Pt O2 Delivery Device Ventilator
[2018-02-25 05:04] LABS: Calcium 6.9 MG/DL (8.5-10.1); Potassium 3.1 MMOL/L (3.5-5.1)
[2018-02-25] MEDS: INSULIN REGULAR 100 UNIT/ML SUBCUT SCH ×4 (05:20→23:32)
[2018-02-25] MEDS: ONDANSETRON 4 MG/2 ML VIAL IV PRN ×2 (05:31→23:37)
[2018-02-25] MEDS: POTASSIUM CHLORIDE RIDER 20 MEQ in PREMIX 1 EACH IV PRN ×2 (07:29→09:21)
[2018-02-25] MEDS: ENOXAPARIN 40 MG/0.4 ML SYRINGE SUBCUT SCH (07:31)
[2018-02-25 08:50] LABS: ABG Base Excess 7.4 MMOL/L (-2.5-2.5); ABG HCO3 31.2 MMOL/L (20-26); ABG Oxygen Saturation 97.1 % (95-100); ABG PCO2 39.9 MM HG (35-48); ABG PH 7.501 (7.35-7.45); ABG PO2 81.3 MM HG (80-95); ABG TCO2 28.1 MMOL/L (23-27); Allen Test Positive; Pt O2 Delivery Device Ventilator
[2018-02-25] MEDS: PANTOPRAZOLE 40 MG VIAL IV SCH (09:31)
[2018-02-25 10:08] LABS: Allen Test Positive
[2018-02-25 10:09] LABS: ABG Base Excess 7.7 MMOL/L (-2.5-2.5); ABG HCO3 31.5 MMOL/L (20-26); ABG PCO2 40.1 MM HG (35-48); ABG PH 7.503 (7.35-7.45); ABG PO2 93.9 MM HG (80-95); ABG TCO2 28.5 MMOL/L (23-27)
[2018-02-25] MEDS: ERTAPENEM 1,000 MG in SODIUM CHLORIDE 0.9% 100 ML IV SCH (10:33)
[2018-02-25] MEDS ORDERED: NALOXONE 0.4 MG/ML VIAL IV PRN (13:05)
[2018-02-25] MEDS ORDERED: HYDROmorphone PCA 30 MG/30 ML SYRINGE IV SCH (13:30)
[2018-02-25] MEDS ORDERED: MORPHINE PCA 30 MG/30 ML SYRINGE IV SCH (13:30)
[2018-02-25] MEDS ORDERED: diphenhydrAMINE 50 MG/1 ML VIAL ONE (14:33)
[2018-02-25] MEDS ORDERED: methylPREDNISolone SOD SUC 125 MG/2 ML VIAL ONE (14:36)
[2018-02-25] MEDS ORDERED: RACEPINEPHRINE 0.5 ML NEB RESP TX ONE (14:40)
[2018-02-25] MEDS ORDERED: diphenhydrAMINE 50 MG/1 ML VIAL IV PRN (15:06)
[2018-02-25] MEDS: TRACE ELEMENTS (5) 1 ML, MULTIVITAMIN INJ 10 ML, POTASSIUM CHLORIDE INJ 40 MEQ in AMINO... IV SCH (18:33)
[2018-02-26] MEDS: metroNIDAZOLE INJ 500 MG in PREMIX 1 EACH IV SCH ×3 (01:16→18:12)
[2018-02-26] MEDS: METOCLOPRAMIDE 10 MG/2 ML VIAL IV SCH ×4 (01:16→20:18)
[2018-02-26] MEDS: HYDROmorphone 2 MG/1 ML VIAL IV PRN ×7 (02:43→22:12)
[2018-02-26 04:22] LABS: ABG HCO3 26.4 MMOL/L (20-26); ABG Oxygen Saturation 97.6 % (95-100); ABG PCO2 40.6 MM HG (35-48); ABG PH 7.431 (7.35-7.45); ABG PO2 113.7 MM HG (80-95); ABG TCO2 27.7 MMOL/L (23-27); Allen Test Positive
[2018-02-26 05:15] LABS: Basophils % 0.2 % (0.0-0.8); Eosinophils % 0.3 % (0.00-10.9); Hematocrit 28.4 VOL% (35.7-47.0); Hemoglobin 9.2 GM/DL (12.0-16.0); Immature Granulocytes Absolute 0.12 #; Lymphocytes # 1.3 10*3/uL (1.4-4.0); Lymphocytes % 11.4 % (21.3-54.2); Mean Corpuscular HGB Conc 32.4 GM/DL (32-36); Mean Corpuscular Hemoglobin 27 PG (27-34); Mean Corpuscular Volume 83.3 FL (87-102); Mean Platelet Volume 9.8 FL (9.6-12.0); Monocytes # 1.2 10*3/uL (0.11-0.8); Monocytes % 10.3 % (1.7-12.7); Neutrophils # 8.8 10*3/uL (1.4-7.4); Neutrophils % 76.8 % (38.7-73.9); Platelet Count 375 T/CUMM (130-400); Red Blood Count 3.41 MC/CUMM (3.8-5.5); Red Cell Distribution Width 19.6 % (9.3-17.3); White Blood Count 11.5 T/CUMM (4-12)
[2018-02-26] MEDS: INSULIN REGULAR 100 UNIT/ML SUBCUT SCH ×3 (05:26→18:16)
[2018-02-26 06:02] LABS: Calcium 7.1 MG/DL (8.5-10.1)
[2018-02-26] MEDS: ENOXAPARIN 40 MG/0.4 ML SYRINGE SUBCUT SCH (07:57)
[2018-02-26] MEDS: PANTOPRAZOLE 40 MG VIAL IV SCH (09:17)
[2018-02-26] MEDS: ERTAPENEM 1,000 MG in SODIUM CHLORIDE 0.9% 100 ML IV SCH (11:45)
[2018-02-26] MEDS: TRACE ELEMENTS (5) 1 ML, MULTIVITAMIN INJ 10 ML, POTASSIUM CHLORIDE INJ 40 MEQ in AMINO... IV SCH (17:12)
[2018-02-26] MEDS: ONDANSETRON 4 MG/2 ML VIAL IV PRN (22:15)
[2018-02-27] MEDS: INSULIN REGULAR 100 UNIT/ML SUBCUT SCH ×5 (00:35→23:50)
[2018-02-27] MEDS: HYDROmorphone 2 MG/1 ML VIAL IV PRN ×8 (00:36→20:41)
[2018-02-27] MEDS: metroNIDAZOLE INJ 500 MG in PREMIX 1 EACH IV SCH ×3 (03:20→18:18)
[2018-02-27] MEDS: METOCLOPRAMIDE 10 MG/2 ML VIAL IV SCH ×4 (03:21→20:36)
[2018-02-27 05:36] LABS: Basophils % 0.3 % (0.0-0.8); Eosinophils # 0.2 10*3/uL (0.0-0.87); Eosinophils % 1.4 % (0.00-10.9); Hematocrit 31.4 VOL% (35.7-47.0); Hemoglobin 10.4 GM/DL (12.0-16.0); Immature Granulocytes % 1.7 %; Immature Granulocytes Absolute 0.18 #; Lymphocytes # 1.1 10*3/uL (1.4-4.0); Lymphocytes % 9.9 % (21.3-54.2); Mean Corpuscular HGB Conc 33.1 GM/DL (32-36); Mean Corpuscular Hemoglobin 27 PG (27-34); Mean Corpuscular Volume 81.3 FL (87-102); Mean Platelet Volume 9.9 FL (9.6-12.0); Monocytes # 1.1 10*3/uL (0.11-0.8); Monocytes % 10.7 % (1.7-12.7); Neutrophils # 8.1 10*3/uL (1.4-7.4); Platelet Count 475 T/CUMM (130-400); Red Blood Count 3.86 MC/CUMM (3.8-5.5); Red Cell Distribution Width 19.9 % (9.3-17.3); White Blood Count 10.7 T/CUMM (4-12)
[2018-02-27 06:04] LABS: Calcium 7.4 MG/DL (8.5-10.1); Osmolality,Calculated 281.3 MOS/KG (273-304); Potassium 4.4 MMOL/L (3.5-5.1)
[2018-02-27] MEDS: ENOXAPARIN 40 MG/0.4 ML SYRINGE SUBCUT SCH (06:51)
[2018-02-27] MEDS: PANTOPRAZOLE 40 MG VIAL IV SCH (08:41)
[2018-02-27] MEDS: ERTAPENEM 1,000 MG in SODIUM CHLORIDE 0.9% 100 ML IV SCH (11:02)
[2018-02-27] MEDS: TRACE ELEMENTS (5) 1 ML, MULTIVITAMIN INJ 10 ML, POTASSIUM CHLORIDE INJ 40 MEQ in AMINO... IV SCH (18:38)
[2018-02-27] MEDS: ONDANSETRON 4 MG/2 ML VIAL IV PRN (20:30)
[2018-02-28] MEDS: HYDROmorphone 2 MG/1 ML VIAL IV PRN ×7 (00:03→20:22)
[2018-02-28] MEDS: ZALEPLON 5 MG CAPSULE PO PRN ×2 (00:11→23:00)
[2018-02-28] MEDS: METOCLOPRAMIDE 10 MG/2 ML VIAL IV SCH ×4 (01:53→20:20)
[2018-02-28] MEDS: metroNIDAZOLE INJ 500 MG in PREMIX 1 EACH IV SCH ×3 (02:02→17:50)
[2018-02-28] MEDS: INSULIN REGULAR 100 UNIT/ML SUBCUT SCH ×3 (06:04→18:32)
[2018-02-28 07:20] LABS: Basophils % 0.3 % (0.0-0.8); Eosinophils # 0.2 10*3/uL (0.0-0.87); Eosinophils % 1.4 % (0.00-10.9); Hematocrit 31.6 VOL% (35.7-47.0); Hemoglobin 10.1 GM/DL (12.0-16.0); Immature Granulocytes % 1.3 %; Immature Granulocytes Absolute 0.13 #; Lymphocytes # 1.4 10*3/uL (1.4-4.0); Lymphocytes % 13.4 % (21.3-54.2); Mean Corpuscular Hemoglobin 26 PG (27-34); Mean Corpuscular Volume 81.9 FL (87-102); Mean Platelet Volume 10.2 FL (9.6-12.0); Monocytes # 1.1 10*3/uL (0.11-0.8); Monocytes % 10.7 % (1.7-12.7); Neutrophils # 7.5 10*3/uL (1.4-7.4); Neutrophils % 72.9 % (38.7-73.9); Platelet Count 580 T/CUMM (130-400); Red Blood Count 3.86 MC/CUMM (3.8-5.5); Red Cell Distribution Width 19.8 % (9.3-17.3); White Blood Count 10.4 T/CUMM (4-12)
[2018-02-28 07:56] LABS: Calcium 7.6 MG/DL (8.5-10.1); Osmolality,Calculated 280.3 MOS/KG (273-304); Potassium 4.5 MMOL/L (3.5-5.1)
[2018-02-28] MEDS: ENOXAPARIN 40 MG/0.4 ML SYRINGE SUBCUT SCH (09:32)
[2018-02-28] MEDS: PANTOPRAZOLE 40 MG VIAL IV SCH (09:40)
[2018-02-28] MEDS: ERTAPENEM 1,000 MG in SODIUM CHLORIDE 0.9% 100 ML IV SCH (12:56)
[2018-02-28] MEDS: ONDANSETRON 4 MG/2 ML VIAL IV PRN (14:31)
[2018-02-28] MEDS: TRACE ELEMENTS (5) 1 ML, MULTIVITAMIN INJ 10 ML, POTASSIUM CHLORIDE INJ 40 MEQ in AMINO... IV SCH (17:50)
[2018-03-01] MEDS: INSULIN REGULAR 100 UNIT/ML SUBCUT SCH ×4 (00:26→18:26)
[2018-03-01] MEDS: METOCLOPRAMIDE 10 MG/2 ML VIAL IV SCH ×4 (02:08→21:03)
[2018-03-01] MEDS: metroNIDAZOLE INJ 500 MG in PREMIX 1 EACH IV SCH ×3 (02:10→17:50)
[2018-03-01] MEDS: HYDROmorphone 2 MG/1 ML VIAL IV PRN ×5 (02:22→21:05)
[2018-03-01 04:20] LABS: Basophils % 0.2 % (0.0-0.8); Eosinophils # 0.2 10*3/uL (0.0-0.87); Eosinophils % 1.8 % (0.00-10.9); Hematocrit 26.6 VOL% (35.7-47.0); Hemoglobin 8.7 GM/DL (12.0-16.0); Immature Granulocytes % 1.1 %; Lymphocytes # 1.2 10*3/uL (1.4-4.0); Lymphocytes % 13.5 % (21.3-54.2); Mean Corpuscular HGB Conc 32.7 GM/DL (32-36); Mean Corpuscular Hemoglobin 27 PG (27-34); Mean Corpuscular Volume 81.8 FL (87-102); Mean Platelet Volume 10.2 FL (9.6-12.0); Monocytes % 10.9 % (1.7-12.7); Neutrophils # 6.5 10*3/uL (1.4-7.4); Neutrophils % 72.5 % (38.7-73.9); Platelet Count 512 T/CUMM (130-400); Red Blood Count 3.25 MC/CUMM (3.8-5.5); Red Cell Distribution Width 19.5 % (9.3-17.3)
[2018-03-01 04:51] LABS: Osmolality,Calculated 278.4 MOS/KG (273-304)
[2018-03-01] MEDS: PANTOPRAZOLE 40 MG VIAL IV SCH (09:56)
[2018-03-01] MEDS: ENOXAPARIN 40 MG/0.4 ML SYRINGE SUBCUT SCH (10:07)
[2018-03-01] MEDS: ERTAPENEM 1,000 MG in SODIUM CHLORIDE 0.9% 100 ML IV SCH (14:32)
[2018-03-01] MEDS: TRACE ELEMENTS (5) 1 ML, MULTIVITAMIN INJ 10 ML in AMINO ACIDS/DEXT/LYTE 4.25-15% 2,000 ML IV SCH (17:50)
[2018-03-01] MEDS: ZALEPLON 5 MG CAPSULE PO PRN (21:06)
[2018-03-02] MEDS: INSULIN REGULAR 100 UNIT/ML SUBCUT SCH ×4 (00:02→17:55)
[2018-03-02] MEDS: HYDROmorphone 2 MG/1 ML VIAL IV PRN ×5 (00:08→21:21)
[2018-03-02] MEDS: METOCLOPRAMIDE 10 MG/2 ML VIAL IV SCH ×4 (02:31→21:18)
[2018-03-02] MEDS: metroNIDAZOLE INJ 500 MG in PREMIX 1 EACH IV SCH ×3 (02:33→17:54)
[2018-03-02 06:19] LABS: Calcium 7.3 MG/DL (8.5-10.1); Osmolality,Calculated 276.5 MOS/KG (273-304); Potassium 4.1 MMOL/L (3.5-5.1)
[2018-03-02] MEDS: PANTOPRAZOLE 40 MG VIAL IV SCH (09:39)
[2018-03-02] MEDS: ENOXAPARIN 40 MG/0.4 ML SYRINGE SUBCUT SCH (09:42)
[2018-03-02] MEDS: ERTAPENEM 1,000 MG in SODIUM CHLORIDE 0.9% 100 ML IV SCH (11:51)
[2018-03-02] MEDS: TRACE ELEMENTS (5) 1 ML, MULTIVITAMIN INJ 10 ML in AMINO ACIDS/DEXT/LYTE 4.25-15% 2,000 ML IV SCH (17:54)
[2018-03-02] MEDS: ZALEPLON 5 MG CAPSULE PO PRN (21:14)
[2018-03-03] MEDS: INSULIN REGULAR 100 UNIT/ML SUBCUT SCH ×3 (01:04→12:10)
[2018-03-03] MEDS: METOCLOPRAMIDE 10 MG/2 ML VIAL IV SCH ×4 (01:44→21:12)
[2018-03-03] MEDS: metroNIDAZOLE INJ 500 MG in PREMIX 1 EACH IV SCH (01:46)
[2018-03-03] MEDS: HYDROmorphone 2 MG/1 ML VIAL IV PRN ×3 (06:12→21:36)
[2018-03-03 06:38] LABS: Osmolality,Calculated 274.5 MOS/KG (273-304); Prealbumin 14.1 MG/DL (20-40)
[2018-03-03] MEDS: PANTOPRAZOLE 40 MG VIAL IV SCH (10:13)
[2018-03-03] MEDS: ENOXAPARIN 40 MG/0.4 ML SYRINGE SUBCUT SCH (10:14)
[2018-03-03] MEDS: ERTAPENEM 1,000 MG in SODIUM CHLORIDE 0.9% 100 ML IV SCH (13:09)
[2018-03-03] MEDS: ZALEPLON 5 MG CAPSULE PO PRN (21:35)
[2018-03-03] MEDS: ONDANSETRON 4 MG/2 ML VIAL IV PRN (21:40)
[2018-03-04] MEDS: METOCLOPRAMIDE 10 MG/2 ML VIAL IV SCH ×4 (03:36→21:36)
[2018-03-04 06:22] LABS: Basophils # 0.1 10*3/uL (0.0-0.2); Eosinophils # 0.2 10*3/uL (0.0-0.87); Hematocrit 28.5 VOL% (35.7-47.0); Hemoglobin 9.3 GM/DL (12.0-16.0); Immature Granulocytes % 0.8 %; Immature Granulocytes Absolute 0.06 #; Lymphocytes # 1.5 10*3/uL (1.4-4.0); Lymphocytes % 18.8 % (21.3-54.2); Mean Corpuscular HGB Conc 32.6 GM/DL (32-36); Mean Corpuscular Hemoglobin 27 PG (27-34); Mean Corpuscular Volume 82.8 FL (87-102); Monocytes # 0.9 10*3/uL (0.11-0.8); Monocytes % 11.3 % (1.7-12.7); Neutrophils # 5.3 10*3/uL (1.4-7.4); Neutrophils % 66.1 % (38.7-73.9); Platelet Count 500 T/CUMM (130-400); Red Blood Count 3.44 MC/CUMM (3.8-5.5); Red Cell Distribution Width 19.9 % (9.3-17.3)
[2018-03-04] MEDS: ENOXAPARIN 40 MG/0.4 ML SYRINGE SUBCUT SCH (09:56)
[2018-03-04] MEDS: PANTOPRAZOLE 40 MG VIAL IV SCH (09:56)
[2018-03-04] MEDS: HYDROmorphone 2 MG/1 ML VIAL IV PRN ×2 (10:05→21:36)
[2018-03-04] MEDS: ONDANSETRON 4 MG/2 ML VIAL IV PRN (21:35)
[2018-03-04] MEDS: ZALEPLON 5 MG CAPSULE PO PRN (21:36)
[2018-03-05] MEDS: METOCLOPRAMIDE 10 MG/2 ML VIAL IV SCH ×4 (02:08→21:04)
[2018-03-05] MEDS: ENOXAPARIN 40 MG/0.4 ML SYRINGE SUBCUT SCH (08:57)
[2018-03-05] MEDS: PANTOPRAZOLE 40 MG VIAL IV SCH (08:58)
[2018-03-05] MEDS ORDERED: HYDROmorphone 2 MG/1 ML VIAL IV PRN (12:03)
[2018-03-05] MEDS: ZALEPLON 5 MG CAPSULE PO PRN (21:18)
[2018-03-06] MEDS: METOCLOPRAMIDE 10 MG/2 ML VIAL IV SCH ×4 (02:37→21:42)
[2018-03-06 05:14] LABS: Calcium 7.5 MG/DL (8.5-10.1); Osmolality,Calculated 279.1 MOS/KG (273-304); Potassium 3.7 MMOL/L (3.5-5.1)
[2018-03-06] MEDS: ENOXAPARIN 40 MG/0.4 ML SYRINGE SUBCUT SCH (08:03)
[2018-03-06] MEDS: PANTOPRAZOLE 40 MG VIAL IV SCH (08:03)
[2018-03-06] MEDS: ZALEPLON 5 MG CAPSULE PO PRN (21:45)
[2018-03-07] MEDS: METOCLOPRAMIDE 10 MG/2 ML VIAL IV SCH ×4 (01:32→21:11)
[2018-03-07] MEDS ORDERED: TUBERCULIN SKIN TEST 0.1 ML SYRINGE INTRADERM ONE (09:33)
[2018-03-07] MEDS: ENOXAPARIN 40 MG/0.4 ML SYRINGE SUBCUT SCH (10:02)
[2018-03-07] MEDS: PANTOPRAZOLE 40 MG VIAL IV SCH (10:07)
[2018-03-07] MEDS: ZALEPLON 5 MG CAPSULE PO PRN (21:11)
[2018-03-08] MEDS: METOCLOPRAMIDE 10 MG/2 ML VIAL IV SCH ×4 (03:30→21:07)
[2018-03-08] MEDS: PANTOPRAZOLE 40 MG VIAL IV SCH (09:34)
[2018-03-08] MEDS: ENOXAPARIN 40 MG/0.4 ML SYRINGE SUBCUT SCH (09:49)
[2018-03-08] MEDS: ZALEPLON 5 MG CAPSULE PO PRN (21:06)
[2018-03-09] MEDS: METOCLOPRAMIDE 10 MG/2 ML VIAL IV SCH ×4 (03:50→21:50)
[2018-03-09] MEDS: PANTOPRAZOLE 40 MG VIAL IV SCH (10:46)
[2018-03-09] MEDS: ENOXAPARIN 40 MG/0.4 ML SYRINGE SUBCUT SCH (10:50)
[2018-03-09] MEDS: ZALEPLON 5 MG CAPSULE PO PRN (21:50)
[2018-03-10] MEDS: METOCLOPRAMIDE 10 MG/2 ML VIAL IV SCH ×4 (02:49→21:10)
[2018-03-10] MEDS: PANTOPRAZOLE 40 MG VIAL IV SCH (08:42)
[2018-03-10] MEDS: ENOXAPARIN 40 MG/0.4 ML SYRINGE SUBCUT SCH (08:42)
[2018-03-10] MEDS: ZALEPLON 5 MG CAPSULE PO PRN (21:10)
[2018-03-11] MEDS: METOCLOPRAMIDE 10 MG/2 ML VIAL IV SCH ×3 (02:36→17:55)
[2018-03-11 05:12] LABS: Basophils # 0.1 10*3/uL (0.0-0.2); Basophils % 1.1 % (0.0-0.8); Eosinophils # 0.1 10*3/uL (0.0-0.87); Eosinophils % 2.3 % (0.00-10.9); Hematocrit 27.9 VOL% (35.7-47.0); Hemoglobin 9.2 GM/DL (12.0-16.0); Immature Granulocytes Absolute 0.06 #; Lymphocytes # 1.5 10*3/uL (1.4-4.0); Mean Corpuscular Hemoglobin 27 PG (27-34); Mean Corpuscular Volume 82.3 FL (87-102); Monocytes # 0.7 10*3/uL (0.11-0.8); Monocytes % 11.6 % (1.7-12.7); NRBC # 0.02 10*3/uL; Neutrophils # 3.7 10*3/uL (1.4-7.4); Platelet Count 573 T/CUMM (130-400); Red Blood Count 3.39 MC/CUMM (3.8-5.5); Red Cell Distribution Width 19.5 % (9.3-17.3); White Blood Count 6.2 T/CUMM (4-12)
[2018-03-11 05:40] LABS: Calcium 7.8 MG/DL (8.5-10.1); Osmolality,Calculated 276.4 MOS/KG (273-304); Potassium 3.8 MMOL/L (3.5-5.1)
[2018-03-11] MEDS: PANTOPRAZOLE 40 MG VIAL IV SCH (09:52)
[2018-03-11] MEDS: ENOXAPARIN 40 MG/0.4 ML SYRINGE SUBCUT SCH (09:55)
[2018-03-11 10:51] VITALS: BP 110/65
[2018-03-11] MEDS ORDERED: LIDOCAINE 1% 20 ML VIAL MISC INJ ONE (12:49)
== END 2018-03-11 16:00 | disposition home health service (06) | DRG 329 ==
LOC: N.ED 14:37 → N.EDINP 16:00 → N.ICU 16:59 → N.3E 02-18 13:46 → N.ICU 02-20 23:11 → N.3E 02-25 14:02 → N.ICU 02-25 14:25 → N.3E 02-26 23:06
PROVIDERS: ADMIT Surgery; ATTEND Surgery